=== PATIENT | male | born 1955 | race Caucasian/White ===

== ENCOUNTER → 2018-10-24 | Outpatient (CLI) | payer MEDICARE ==
--- NOTE | 2018-10-24 14:19 | PCVCIMAG ---
APPROVED REPORT Study performed: 10/24/2018 10:07:20 Exam: Stress Echocardiogram Indication: Chest pain , Dyspnea , CAD Patient Location: Echo lab Stress Nurse: Rafia Morgan RN Room #: 2 Status: routine Ht: 6 ft 3 in Medical History Medical History: CAD non obstructive, HTN, Hyperlipidemia Cardiac Risk Factors: HTN, Hyperlipidemia, FHX of CAD Pretest Chest Pain Characteristics: No chest pain Exercise History: Sedentary Procedure The patient underwent an Exercise Stress Test using the Luis Protocol. Blood pressure, heart rate, and EKG were monitored. An Echocardiogram was performed by restaurant maintenance technician in four stages in quad fashion. At peak stress, four selected images were obtained and placed side by side with resting images for comparison. Stress Test Details Stress Test: Exercise stress testing was performed using a Luis protocol. HR Resting HR: 61 bpmMax Heart Rate (APMHR): 156 bpm Max HR Achieved: 157 bpmTarget HR (85% APMHR): 132 bpm % of APMHR: 100 Recovery HR: 84 bpm HR response to stress: Normal HR response to stress BP Resting BP: 112/82 mmHg Max BP: 210/80 mmHg Recovery BP: 156/74 mmHg BP response to stress: hypertensive response to stress- BP med held. ECG Resting ECG: Sinus Rhythm Stress ECG: Sinus Rhythm ST Change: Non-ischemic Arrhythmia: isolated PVCS Recovery ECG: Sinus Rhythm Recovery ST Change: Non-ischemic Recovery Arrhythmia: Short runs VT Clinical Reason for Termination: Maximal effort Stress Symptoms: fatigue Exercise duration: 6 min 0 sec Highest Stage Achieved: Stage 2: 2.5 mph at 12% grade. Exercise capacity: 7 METs Overall Exercise Capacity for Age: Poor Scale: Sedentary Angina Score: None No complications. Stress ECG Conclusion The patient exercised according to the LUIS protocol for 6:00 mins; achieving a work level of 7.0 METS. The resting heart rate of 61 bpm primitivo to a maximum heart rate of 157 bpm. This value represent 100% of the maximal, age-predicted heart rate. The resting blood pressure of 112/82 mmHg, primitivo to a maximum blood pressure of 210/80 mmHg. The exercise test was stopped due to fatigue. Pre-Stress Echo The resting Echocardiogram showed normal left ventricular contractility with an estimated Ejection Fraction of about 55-60%. Normal wall motion in all segments on baseline images. Post-Stress Echo The stress Echocardiogram showed normal left ventricular contractility with an estimated Ejection Fraction of about 65-70%. Normal augmentation of wall motion in all segments on post stress images. Clinical No clinical or ECG evidence for ischemia. Conclusion Clinical Response: Non-ischemic Exercise Capacity: Below Average Stress ECG Response: Non-ischemic Stress Echo Images: Non-ischemic No clinical, EKG or echocardiographic evidence for ischemia. No echocardiographic evidence for exercise induced ischemia. Normal stress echocardiogram with maximal exercise stress. <Conclusion> No clinical, EKG or echocardiographic evidence for ischemia. No echocardiographic evidence for exercise induced ischemia. Normal stress echocardiogram with maximal exercise stress.
== END | disposition home or self-care (01) ==
LOC: PCVCIMAG 10:00
PROVIDERS: ATTEND Internal Medicine Cardiovascular Disease
DX: R07.9 Chest pain, unspecified (principal); I25.10 Atherosclerotic heart disease of native coronary artery without angina pectoris; R06.09 Other forms of dyspnea; E78.5 Hyperlipidemia, unspecified
CPT/HCPCS: 93325; 93351